=== PATIENT | male | born 1985 | race Caucasian/White ===

== ENCOUNTER 2018-01-02 13:49 | Emergency (ER) | payer OTHER ==
[2018-01-02] MEDS: DEXAMETHASONE 10 MG/ML 1 ML INJ IM (14:21)
[2018-01-02] MEDS: KETOROLAC 30 MG INJ IM (14:21)
[2018-01-02] MEDS: METHOCARBAMOL 750 MG TAB PO (14:33)
== END 2018-01-02 15:49 | disposition home or self-care (01) ==
LOC: FTE 13:49
DX: M54.5 Low back pain (principal); F17.210 Nicotine dependence, cigarettes, uncomplicated
CPT/HCPCS: 72072; 72100; 96372; 99284-25